=== PATIENT | male | born 2000 | race Caucasian/White ===

== ENCOUNTER 2021-06-05 13:54 | Emergency (ER) | payer OTHER ==
[~2021-06-05] VITALS: Ht 160 cm; Wt 64.0 kg
[2021-06-05 13:59] VITALS: BP 123/85
== END 2021-06-05 14:14 ==
LOC: ER 14:10
DX: Z02.89 Encounter for other administrative examinations (principal); F41.9 Anxiety disorder, unspecified; R03.0 Elevated blood-pressure reading, without diagnosis of hypertension
CPT/HCPCS: 99283